=== PATIENT | male | born 1960 | race Caucasian/White ===

== ENCOUNTER 2016-10-30 14:02 | Inpatient (IN) | payer MEDICARE ==
[~2016-10-30] VITALS: Ht 167.6 cm; Wt 106.6 kg
--- NOTE | ~2016-10-30 | HEMODYNAMI ---
PATIENT:SYED MONK MEDICAL RECORD: [id number] : 64 [id number] ADMISSION DATE: 10/30/16 Generatedon:10/31/20169:01 Patient name: SYED MONK Patient #: [id number] SSN: : 1960 Date of study: 10/31/2016 Page: Of Hemodynamic Procedure Report Patient Data Patient Demographics Procedure consent was obtained First Name: SYED Gender: Male Last Name: LACHO : 1960 [facility] Initial: COREY Age: 56 year(s) Patient #: [id number] Race: Unknown Additional ID: [id number] Contact details [address]: [address] [place] [address] ROAD State: [place] City: [place] Zip code: [address] Past Medical History Allergies: No known allergies Admission Admission Data Admission Date: 10/30/2016 Admission Time: 17:00 Room #: D.2115 Lab Results Lab Result Date: 10/31/2016 Lab Result Time: 0:00 Biochemistry Name Units Result Min Max BUN mg/dl 31 --(----)-* 7 18 Creatinine mg/dl 2.4 --(----)-* 0.6 1.3 CBC Name Units Result Min Max Hemoglobin g/dl 13.3 -*(----)-- 13.5 17.5 Procedure Procedure Types Cath Procedure Diagnostic Procedure C Coronaries only Miscellaneous Procedures Moderate Sedation up to 45 minutes Procedure Description Procedure Date Procedure Date: 10/31/2016 Procedure Start Time: 8:27 Procedure End Time: 8:54 Procedure Staff Name Function Joon Fields RT Scrub Juan Manuel Lugo MD Performing Physician Jeremy Sinclair RT Monitor Rhona Swanson RN Nurse Procedure Data Cath Procedure Fluoroscopy Diagnostic fluoroscopy Total fluoroscopy Time: time: 10.3 min 10.3 min Diagnostic fluoroscopy Total fluoroscopy dose: dose: 1220 mGy 1220 mGy Contrast Material Contrast Material Type Amount (ml) Isovue 300 86 Entry Location Entry Primary Successful Side Size Upsize Upsize Entry Closure Succes sful Closure Location (Fr) 1 (Fr) 2 (Fr) Remarks Device Remarks Femoral Right 6 Fr Exoseal artery Short Estimated blood loss: 10 ml Procedure Complications No complications Procedure Medications Medication Administration Route Dosage Lidocaine 2% added to field 20 Heparin Flush Bag added to field 2 bags (1000units/500ml NS) Oxygen NC 3 l/min 0.9% NaCl I.V. 100 ml/hr Versed I.V. 1 mg Fentanyl I.V. 50 mcg Heparin Bolus I.V. 4000 units Versed I.V. 1 mg Fentanyl I.V. 50 mcg Versed I.V. 1 mg Hemodynamics Rest HGB: 13.3 (g/dl) Heart Rate: 70 (bpm) Snapshots Pre Cath Intra NCS Post Cath Vital Signs Time Heart Resp SPO2 etCO2 MP4bkwo NIBP (mmHg) Rhythm Pain Sedation Rate (ipm) (%) (mmHg) (mmHg) Status Level (bpm) 8:01:45 57 16 96 0 0 149/89(132) NSR 0 (11) 10(A) , No pain 8:06:05 67 17 100 0 0 119/85(97) NSR 0 (11) 10(A) , No pain 8:11:10 79 16 97 0 0 123/83(101) NSR 0 (11) 10(A) , No pain 8:15:20 81 16 95 0 0 131/79(108) NSR 0 (11) 10(A) , No pain 8:19:28 75 17 98 0 0 123/81(96) NSR 0 (11) 10(A) , No pain 8:23:42 76 15 93 0 0 128/77(95) NSR 0 (11) 10(A) , No pain 8:27:58 62 16 96 0 0 130/76(87) NSR 0 (11) 10(A) , No pain 8:32:14 75 17 99 0 0 124/76(98) NSR 0 (11) 9(A) , No pain 8:36:22 85 17 93 0 0 121/77(92) NSR 0 (11) 9(A) , No pain 8:40:23 77 27 91 0 0 115/81(109) NSR 0 (11) 9(A) , No pain 8:44:31 84 23 91 0 0 127/83(97) NSR 0 (11) 9(A) , No pain 8:48:43 80 15 91 0 0 120/77(93) NSR 0 (11) 9(A) , No pain 8:52:57 77 16 99 0 0 116/76(92) NSR 0 (11) 10(A) , No pain Medications Time Medication Route Dose Verified Delivered Reason Notes Eff ectiveness by by 7:46:11 Lidocaine 2% added 20ml Rhona Rhona used for to vial Kiki Kiki procedure field RN RN 7:46:23 Heparin Flush added 2 Rhona Rhona used for Bag to bags Kiki Kiki procedure (1000units/500ml field RN RN NS) 8:00:33 Oxygen NC 3 Rhona Rhona used for l/min Kiki Kiki axle inspector RN 8:00:44 0.9% NaCl I.V. 100 Rhona Rhona used for ml/hr Kiki Kiki axle inspector RN 8:03:17 Fentanyl I.V. 50 Rhona Rhona for mcg Kiki Kiki sedation RN RN 8:26:20 Versed I.V. 1 mg Rhona Rhona for Kiki Kiki sedation RN RN 8:27:25 Fentanyl I.V. 50 Rhona Rhona for mcg Kiki Kiki sedation RN RN 8:30:41 Heparin Bolus I.V. 4000 Juan Manuel Rhona Per verified units [facility] physician with dr. JASMYNE lugo 8:31:04 Versed I.V. 1 mg Rhona Rhona for Kiki Kiki sedation RN RN 8:35:25 Versed I.V. 1 mg Rhona Rhona for Kiki Kiki sedation RN embedded processor Log Time Note 7:43:10 H&P Date Dictated: 10/30/2016 Within 30 days and on chart.. 7:43:17 Lab results completed and on chart. 7:43:56 Lab Result : Hemoglobin 13.3 g/dl 7:43:56 Lab Result : Creatinine 2.4 mg/dl 7:43:56 Lab Result : BUN 31 mg/dl 7:45:53 Joon Fields RT(R) (CV) sent for patient. Start room use. 7:45:55 Time tracking: Regular hours 7:45:59 Plan of Care:Hemodynamics will remain stable., Cardiac rhythm will remain stable., Comfort level will be maintained., Respiratory function will remain adequate., Patient/ family verbilizes understanding of procedure., Procedure tolerated without complication., Recovers from procedure without complications.. 7:46:11 Lidocaine 2% 20ml vial added to field was administered by Rhona Swanson RN; used for procedure; 7:46:23 Heparin Flush Bag (1000units/500ml NS) 2 bags added to field was administered by Rhona Swanson RN; used for procedure; 7:46:48 Use device set Femoral PCI 7:54:39 Patient received from PCU to CCL 1 Alert and oriented. Tansferred to table in Supine position. 7:54:41 Warm blankets applied, and jillian hugger turned on for patient comfort. 7:54:42 Correct patient and procedure confirmed by team. 7:54:43 Signed procedure consent form obtained from patient. 7:54:44 ECG and BP/O2 sat monitors applied to patient. 7:58:52 Pre-op teaching completed and patient verbalized understanding. 7:58:52 Pre-procedure instructions explained to patient. 7:58:54 Family in waiting room. 7:58:56 Patient NPO since Midnight. 7:59:07 Patient allergic to No known allergies 7:59:09 Is the patient allergic to Iodine/contrast media? No. 8:00:33 Oxygen 3 l/min NC was administered by Rhona Swanson RN; used for procedure; 8:00:44 0.9% NaCl 100 ml/hr I.V. was administered by Rhona Swanson RN; used for procedure; 8:00:45 Vital chart was started 8:02:35 Is patient on blood thinner?No 8:02:40 Patient diabetic? No. 8:02:45 Previous problem with sedation/anesthesia? No ? 8:02:46 Snore? Yes 8:02:47 Sleep apnea? No 8:02:49 Opens mouth fully? Yes 8:02:49 Deviated septum? No 8:02:50 Sticks out tongue? Yes 8:02:53 Airway obstruction? No ? 8:03:00 Dentures? Yes out 8:03:03 Pre procedure: right dorsailis pedis pulse 1+ Palpable, but thready & weak; easily obliterated 8:03:05 Patient pain scale 0/10 ?. 8:03:12 IV patent on arrival in left hand with 0.9% NaCl at [facility]. 8:03:17 Fentanyl 50 mcg I.V. was administered by Rhona Swanson RN; for sedation; 8::17 Right groin area was prepped with chlora-prep and draped in sterile fashion 8:03:19 Sharps counted by scrub and verified by R.N. 8:03:19 Alarms reviewed by R. N. 8:04:18 Use device set Femoral PCI 8:04:20 Tegaderm 4 x 4 opened to sterile field. 8:04:22 Acist Manifold opened to sterile field. 8:04:24 Merit BasixCompak Inflation Kit opened to sterile field. 8:04:25 St Awais 260cm J .035 wire opened to sterile field. 8:04:25 Terumo 6Fr [place] Sheath opened to sterile field. 8:04:27 Bag Decanter opened to sterile field. 8:04:27 Medline Cath Pack opened to sterile field. 8:04:28 Acist Hand Control opened to sterile field. 8:04:29 Acist Syringe opened to sterile field. 8:05:25 Baseline sample Acquired. 8:05:36 Rhythm: sinus rhythm 8:05:38 Full Disclosure recording started 8:11:43 Cordis 6FR XBLAD 4.0 guide catheter opened to sterile field. 8:12:15 Zero performed for pressure channel P1 8:12:36 Villalba Fielder XT J 300cm 0.014 guide wire opened to sterile field. 8:25:09 --------ALL STOP TIME OUT------ 8:25:09 Physician arrived 8:25:10 Final Timeout: patient, procedure, and site verified with staff and physician. All members of the team are in agreement. 8:25:11 Right groin site verified by team. 8:25:14 Physical assessment completed. ASA score P 2 - A patient with mild systemic disease as per Juan Manuel Lugo MD. 8:25:17 Sedation plan: IV Moderate Sedation Versed, Fentanyl 8:26:20 Versed 1 mg I.V. was administered by Rhona Kiki RN; for sedation; 8:27:25 Fentanyl 50 mcg I.V. was administered by Rhona Swanson RN; for sedation; 8:27:45 Procedure started. 8:27:48 Local anesthetic to right femoral artery with Lidocaine 2% by Juan Manuel Lugo MD.INITIAL ACCESS ONLY 8:28:23 A 6 Fr Short sheath was inserted into the Right Femoral artery 8:28:32 [place] Sci Choice PT Extra Support J 300cm .014 gu opened to sterile field. 8:29:25 6 Fr XBLAD 4 guide catheter was inserted over the wire 8:29:33 LCA angiography performed. 8:30:41 Heparin Bolus 4000 units I.V. was administered by Rhona Swanson RN; Per physician; verified with dr. lugo 8:31:02 CHOICE PT ES wire advanced. 8:31:04 Versed 1 mg I.V. was administered by Rhona Swanson RN; for sedation; 8:34:30 SuperCross Microcatheter 90 angle opened to sterile field. 8:35:25 Versed 1 mg I.V. was administered by Rhona Swanson RN; for sedation; 8:36:22 SuperCross Microcatheter advanced over wire for support. 8:40:24 choice PT wire removed 8:40:35 Fielder wire advanced. 8:44:47 Wire removed. unable to cross lesion. 8:44:58 Microcatheter removed. 8:45:15 Cordis Shinobi J 300cm 0.014 guide wire opened to sterile field. 8:45:31 Shinobi wire advanced. 8:45:32 The [place] Sci Republic 1.5 X 20 balloon was advanced and then removed because of failure to cross lesion 8:49:10 Timer 1 started at 8:47 AM, stopped at 8:49 AM, duration 00:01:52 sec. 8:49:17 Wire removed. 8:49:18 Guide catheter removed. 8:49:29 Cordis 6Fr Exoseal opened to sterile field. 8:49:51 Sheath removed intact; hemostasis achieved with Exoseal to the Right Femoral artery. 8:49:53 Procedure ended.(Physican Out) 8:50:31 Fluoroscopy time 10.30 minutes. 8:50:35 Flurop Dose total: 1220 8:50:35 Fluoroscopy dose: 1220 mGy 8:50:39 Contrast amount:Isovue 300 86ml. 8:50:42 Sharps counted by scrub and verified by R.N. 8:50:44 Insertion/operative site no bleeding no hematoma. 8:50:46 Post-op/insertion site Right Femoral artery dressed using a 4 x 4 and Tegaderm. 8:50:54 Post right femoral artery:stable, soft, clean and dry 8:52:23 Post Procedure Pulses reassessed and unchanged 8:52:25 Post-procedure physical assessment completed. ASA score P 2 - A patient with mild systemic disease as per Juan Manuel Lugo MD. 8:52:27 Post procedure rhythm: unchanged. 8:52:29 Estimated blood loss: 10 ml 8:52:31 Post procedure instruction explained to patient.Patient verbalizes understanding. 8:52:31 Patient needs reinforcement of post procedure teaching. 8:52:52 Procedure type changed to Cath procedure, Diagnostic procedure, LHC, Coronaries only, Miscellaneous Procedures, Moderate Sedation up to 45 minutes 8:54:27 Procedure and supply charges have been captured, reviewed, submitted and are correct. 8:54:30 Procedure Complication : No complications 8:54:34 Vital chart was stopped 8:54:34 See physician's report for complete and final results. 8:54:36 Report given to PCU. 8:54:41 Patient transfered to PCU with Stretcher. 8:54:44 Procedure ended. 8:54:44 Full Disclosure recording stopped 8:55:00 End room use (Document Last) Intervention Summary Intervention Notes Time ActionType Lesion and Equipment Action# Pressure Duration Attributes Used 8:45:32 Discard [place] Balloon Sci Republic 1.5 X 20 balloon Device Usage Item Name Manufacture Quantity Catalog Number [facility] Lot# / Charge Number Stock Stock Serial# Code Tegaderm 4 x 3M 1 [id number] 234693 365543 5 4 Acist Acist 1 01676 693891 844197 489803 5 [place] [employer] Merit Merit 1 [id number] [id number] 005136 252835 15 BasixComStrategy Store Medical Inflation Kit Terumo 6Fr Terumo 1 [id number] 516656 930277 [address] Awais 1 229094 112579 892870 314163 30 J .035 wire Medline Cath Cardinal 1 [id number] 778539 23054 213702 5 Pack Health Bag Decanter Microtek 1 2002 689546 24640 094389 5 Medical Inc. Acist Hand Acist 1 66221 080731 302612 103030 5 Control Medical Systems Inc Acist Syringe Acist 1 73031 646089 295478 211905 20 Medical Systems Inc Cordis 6FR Cardinal 1 [id number] 341992 187215 540511 3 XBLAD 4.0 Health guide catheter Villalba Villalba 1 [id number] 785736 062182 736854 5 Fielder XT J Vascular 300cm 0.014 guide wire [place] [facility] 1 [id number] 376344 557306 979755 5 Choice PT Scientific Extra Support J 300cm .014 gu SuperCross Vascular 1 5304 107453 221862 215783 5 Microcatheter Solutions 90 angle Cordis Cardinal 1 [id number] 471363 052869 912618 1 Shinobi J Health 300cm 0.014 guide wire Cordis 6Fr Cardinal 1 EX600 325802 522788 436899 10 Exoseal Health [place] [facility] 1 [id number] 963016 280928 929520 1 [id number] FClub 1.5 Scientific X 20 balloon Signature Audit [place] Stage Time Signature Unsigned Intra-Procedure 10/31/2016 Jeremy Sinclair RT(R) 8:55:17 AM RT(R) 10/31/2016 8:59:11 AM Intra-Procedure 10/31/2016 Jeremy Sinclair 9:01:30 AM RT(R) Signatures Monitor : Jeremy Sinclair RT Signature : Date : Time : [facility] [address] [place] [address]
[2016-10-30 15:22] LABS: BASOPHILS 0.2 % (0-2); EOSINOPHILS 1.5 % (0-7); HEMATOCRIT 41.4 % (42.0-54.0); HEMOGLOBIN 13.8 g/dL (13.5-17.5); IMMATURE GRANULOCYTES 0.3 % (0-5); LYMPHOCYTES 23.5 % (15-50); MCH 30.7 pg (26.0-34.0); MCHC 33.3 g/dL (31.0-37.0); MEAN PLATELET VOLUME 11.4 fL (7.4-10.4); MONOCYTES 8.4 % (2-11); NEUTROPHILS 66.1 % (40-80); PLATELET COUNT 143 10x3/uL (130-400); RDW 13.6 % (11.5-14.5); WBC 6.1 10x3/uL (4.8-10.8)
[2016-10-30 15:54] LABS: ANION GAP 14.7 mmol/L (8-16); BILIRUBIN - TOTAL 0.5 mg/dL (0.2-1.3); CALCIUM 9.4 mg/dL (8.5-10.1); CARBON DIOXIDE 21.2 mmol/L (21.0-32.0); CREATININE - SERUM 2.2 mg/dL (0.6-1.3); POTASSIUM - SERUM 4.9 mmol/L (3.5-5.1); PROTEIN - SERUM 7.7 g/dL (6.4-8.2)
--- NOTE | 2016-10-30 18:00 | NUR ---
TRANSFER FROM ER BY STRETCHER. OREINTED TO ROOM. CALL LIGHT IN REACH. WILL CONT. PLAN OF CARE.
[2016-10-30 18:15] VITALS: BP 132/78; BMI 38.0
[2016-10-30] MEDS ORDERED: ISOSORBIDE MONO30 M1 PO (18:23)
[2016-10-30] MEDS ORDERED: PROTONIX40 MG PO (18:24)
[2016-10-30] MEDS ORDERED: ZOCOR10 MG PO (18:25)
[2016-10-30] MEDS ORDERED: INVOKANA100 MG PO (18:25)
[2016-10-30] MEDS ORDERED: GABAPENTIN100 MG PO ×2 (18:26)
[2016-10-30] MEDS ORDERED: TRAZODONE HCL50 MG PO (18:27)
[2016-10-30] MEDS ORDERED: GLUCOPHAGE500 MG PO (18:27)
[2016-10-30] MEDS ORDERED: ASPIRIN325 MG PO (18:27)
[2016-10-30] MEDS ORDERED: GEMFIBROZIL600 MG PO (18:27)
[2016-10-30] MEDS ORDERED: LISINOPRIL10 MG PO (18:28)
[2016-10-30] MEDS ORDERED: LINZESS145 MCG PO (18:28)
[2016-10-30] MEDS ORDERED: NOVOLIN N100 U/ML SQ ×2 (18:29)
[2016-10-30 19:00] VITALS: BP 138/85
--- NOTE | 2016-10-30 21:37 | NUR ---
CALL TO DR. BLANCO TO REPORT PT HAVING HEAD ACHE/CHEST DISCOMFORT. NO PAIN MEDS ORDERED PER ER. NEW ORDER RECIEVED.
[2016-10-31] VITALS: BP 122/71
--- NOTE | 2016-10-31 02:35 | NUR ---
PT AWAKE AND C/O HEADACHE 12/10. STATES THE MORPHINE HE RECEIVED EARLIER MADE IT GO AWAY AND IS REQUESTING MORE MEDICATION. MEDICATED WITH MORPHINE 2MG SIVP. MONITOR AND CPOC.
[2016-10-31 04:00] VITALS: BP 116/71
[2016-10-31 04:58] LABS: BASOPHILS 0.3 % (0-2); EOSINOPHILS 2.1 % (0-7); HEMATOCRIT 41.4 % (42.0-54.0); HEMOGLOBIN 13.3 g/dL (13.5-17.5); IMMATURE GRANULOCYTES 0.7 % (0-5); MCH 29.9 pg (26.0-34.0); MCHC 32.1 g/dL (31.0-37.0); MEAN PLATELET VOLUME 11.1 fL (7.4-10.4); MONOCYTES 8.5 % (2-11); NEUTROPHILS 60.4 % (40-80); PLATELET COUNT 145 10x3/uL (130-400); RBC 4.45 10x6/uL (4.20-6.10); RDW 13.6 % (11.5-14.5); WBC 5.7 10x3/uL (4.8-10.8)
[2016-10-31 05:19] LABS: CALC OSMOLALITY 280 mosm/kg (275-300); CALCIUM 8.8 mg/dL (8.5-10.1); CARBON DIOXIDE 24.8 mmol/L (21.0-32.0); CHLORIDE - SERUM 102 mmol/L (98-107); CREATININE - SERUM 2.4 mg/dL (0.6-1.3); GLUCOSE 133 mg/dL (74-106); POTASSIUM - SERUM 4.9 mmol/L (3.5-5.1); SODIUM 136 mmol/L (136-145); UREA NITROGEN 31 mg/dL (7-18); eGFR NON AFRICAN AMERICAN 30 mL/min (90-120)
[2016-10-31 05:21] LABS: TROPONIN-I < 0.017 ng/mL (0.000-0.060)
[2016-10-31 09:12] VITALS: BP 125/81
[2016-10-31 10:41] VITALS: Ht 167.6 cm; Wt 106.6 kg
[2016-10-31 12:55] LABS: APPEARANCE CLEAR (CLEAR); BILIRUBIN NEGATIVE (NEGATIVE); COLOR YELLOW (YELLOW); GLUCOSE 1000 mg/dL (NEGATIVE); KETONE NEGATIVE (NEGATIVE); LEUKOCYTE ESTERASE NEGATIVE (NEGATIVE); NITRITE NEGATIVE (NEGATIVE); PROTEIN NEGATIVE (NEGATIVE); RED CELLS - URINE 25-50 /hpf (0-5); SPECIFIC GRAVITY 1.015 (1.005-1.020); UROBILINOGEN NORMAL (NORMAL); WHITE CELLS - URINE RARE /hpf (0-5)
[2016-10-31 12:56] LABS: BACTERIA FEW /hpf (NONE SEEN); EPITHELIAL CELLS OCC /hpf (0-5); MUCUS <1+ /lpf (NONE SEEN)
[2016-10-31 16:13] VITALS: BP 129/72
--- NOTE | 2016-10-31 17:35 | NUR ---
REVIWED DISCHARGE INSTRUCTIONS WITH PT PT STATES UNDERSTANDING COPY GIVEN DCD SALINE LOCK TO LT WRIST WITH IV CATHETER INTACT SITE FREE OF REDNESS OR EDEMA PT DISCHARGED HOME LEFT UNIT VIA W/C IN STABLE CONDITION WITH ALL PERSONAL BELONGINGS
--- NOTE | 2016-11-01 13:52 | DS ---
PATIENT:SYED VERDUZCO :64 MEDICAL RECORD: [id number] DISCHARGE SUMMARY ADMISSION DATE: 10/31/16 DISCHARGE DATE: 10/31/16 DIAGNOSES: 1. Angina. 2. Coronary artery disease. HISTORY: Mr. Verduzco presents with anginal symptomatology, found to have total occlusion of the RCA, total occlusion in the LAD. We cannot traverse the total occlusion in the LAD via transcatheter approach. He was seen by cardiac surgery, scheduled for cardiac surgery on the , was discharged home with the follow up on the for cardiac surgery. TRANSINT:[id number] Voice Confirmation ID: [id number] DOCUMENT ID: [id number] JOE VU MD at 1352 CC: [id number] DICTATION DATE: 10/31/16 1636 FORENSIC MANAGER: 11/01/16 0343 DIS IN 10/31/16 [facility] [address] [place] [address]
--- NOTE | 2016-11-01 13:52 | HP ---
PATIENT: SYED MONK MEDICAL RECORD: [id number] ACCOUNT: [id number] LOCATION:D. D.2115 : 64 ADMISSION DATE: 10/31/16 HISTORY AND PHYSICAL EXAMINATION ADMITTING DIAGNOSES: 1. Angina. 2. Coronary artery disease. 3. Hypertension. 4. Insulin-dependent diabetes. 5. Hyperlipidemia. HISTORY OF PRESENT ILLNESS: This is a gentleman who presents with anginal symptomatology. He underwent cardiac catheterization at [facility] was told he need a bypass surgery, I reviewed the cardiac catheterization film. He has a 20 mm total occlusion of his left anterior descending in the mid vessel. He has a subtotal occlusion of the right coronary artery in the mid as well as distal vessel. The right coronary has a channel appears to be easily approached via transcatheter approach. The LAD has a nub and is possibly be able to approach via transcatheter approach. He wants to try to avoid having bypass surgery if at all possible. His EKG is with no acute changes. PHYSICAL EXAMINATION: GENERAL APPEARANCE: Well-nourished, well-developed, appears stated age. Level of distress, comfortable. PSYCHIATRIC: Mental status, alert, normal affect. Orientation, oriented to time, place and person. EYES: Lids and conjunctiva, noninjected. No discharge, no pallor. ENT: Lips, teeth, gums, normal dentition. Oropharynx, no cyanosis, no pallor. NECK: Carotid arteries, bilateral normal upstroke, no bruits, no thrills. JUGULAR VEINS: No jugular venous pressure or distention. CERVICAL LYMPH NODES: Nontender, nonenlarged. THYROID: Not enlarged. Nontender. No nodules. LUNGS: Respiratory effort, unlabored. CHEST: Normal curvature. No thoracic deformity. No chest wall tenderness. Percussion, resonant. Auscultation, clear. No wheezes, no rales, no rhonchi. CARDIOVASCULAR: Precordial exam, nondisplaced. No heaves or pericardial thrills. Rate and rhythm, regular. Heart sounds, normal S1, normal S2. No S3, no gallop, no rub. Systolic murmur, not heard. Diastolic murmur, not heard. EXTREMITIES: No cyanosis, no edema. Peripheral pulses, full and equal in all extremities, except as noted. No bruits appreciated. ABDOMEN: Soft, nondistended. Normal aorta. No bruit. Nontender. No masses. Liver, nontender, no hepatomegaly. Spleen, nontender, no splenomegaly. MUSCULOSKELETAL: No joint tenderness. No joint swelling. No erythema. NEUROLOGICAL: Normal gait, normal strength, normal tone. SKIN: Warm and dry. REVIEW OF SYSTEMS: The patient reports easy bruising but reports no swollen glands. The patient reports no fever, no night sweats, no significant weight gain, no significant weight loss. No significant exercise tolerance. The patient reports no dry eyes, no irritation, no vision change. Patient reports no difficulty hearing and no ear pain. Patient reports no frequent nose bleeds or nose and sinus problems. Patient reports on arm pain on exertion. No shortness of breath while lying down. No history of heart murmur. Patient reports no cough, no wheezing or coughing up blood. Patient reports no HISTORY AND PHYSICAL [id number] SYED MONK abdominal pain, no vomiting. Normal appetite. No diarrhea and not vomiting blood. No nausea and no constipation. Patient reports no incontinence. No difficulty urinating. No hematuria. No increased frequency. Patient reports no muscle aches. No weakness, no arthralgias, no back pain. No swelling of the extremities. Patient reports no abnormal mole, no jaundice, no rashes. Reports no loss of consciousness. No weakness and no numbness. No seizures, dizziness, or headaches. The patient reports no depression, no sleep disturbance, feeling safe in a relationship and no alcohol abuse. Patient reports on fatigue. Reports no runny nose or sinus pressure. No itching, no hives, and no frequent sneezing. OVERALL IMPRESSION: Continued anginal symptomatology with severe coronary artery disease. We will attempt transcatheter revascularization of the LAD if this can be performed, we will then do a staged transcatheter revascularization of the right coronary artery. If this cannot be performed, would consult Dr. Pride for bypass surgery. TRANSINT:[id number] Voice Confirmation ID: [id number] DOCUMENT ID: [id number] JOE VU MD at 1352 CC: [id number] DICTATION DATE: 10/30/16 1537 CORE OVEN TENDER: 10/30/16 1722 DIS IN 10/31/16 [place] [id number] [place] [address]
--- NOTE | 2016-11-01 13:52 | OP ---
PATIENT NAME: SYED MONK MEDICAL RECORD: [id number] :64 LOCATION:D.M2 D.2115 ADMISSION DATE:10/31/16 SURGEON: JOE VU MD DATE OF OPERATION: 10/31/2016 PROCEDURES: 1. Selective coronary angiography. 2. Attempted but failed PTCA stent of the LAD due to inability to cross the lesion. PROCEDURE IN DETAIL: After informed consent obtained and after a detailed explanation of risks, benefits as well as alternative therapies, the patient elected to proceed with angiogram and angioplasty. The right femoral area was prepped and draped in normal sterile fashion. The right femoral artery was cannulated via modified Seldinger technique with placement of 6-Syriac sheath. All catheters exchanged through this sheath. FINDINGS: The left anterior descending has 20 mm of total occlusion in the mid vessel. We attempted multiple wires, no wire would cross this total occlusion. OVERALL IMPRESSION: Total occlusion of the LAD, total occlusion of the RCA. Evaluate for coronary bypass graft surgery. TRANSINT:[id number] Voice Confirmation ID: [id number] DOCUMENT ID: [id number] JOE VU MD at 1352 CC: [id number] DICTATION DATE: 10/31/16 0855 TOBACCO CUTTER: 10/31/16 1230 DIS IN 10/31/16 [place] [place] [address]
[2016-11-01] MEDS ORDERED: HUMULIN N100 U/ML SC (14:41)
== END 2016-10-31 17:35 | disposition home or self-care (01) | DRG 251 ==
LOC: D.ER 14:02 → OBSVTIME 17:00 → D.M2 17:00
PROVIDERS: Emergency Medicine; ADMIT Internal Medicine Interventional Cardiology
PROC: 4A023N7 Measurement of Cardiac Sampling and Pressure, Left Heart, Percutaneous Approach (ICD-10-PCS; 2016-10-31)
PROC: B2111ZZ Fluoroscopy of Multiple Coronary Arteries using Low Osmolar Contrast (ICD-10-PCS; 2016-10-31)
PROC: B2151ZZ Fluoroscopy of Left Heart using Low Osmolar Contrast (ICD-10-PCS; 2016-10-31)
PROC: 02703ZZ Dilation of Coronary Artery, One Artery, Percutaneous Approach (ICD-10-PCS; principal; 2016-10-31 10:30)
DX: I25.119 Atherosclerotic heart disease of native coronary artery with unspecified angina pectoris (principal); I25.82 Chronic total occlusion of coronary artery; I10 Essential (primary) hypertension; E11.9 Type 2 diabetes mellitus without complications; Z79.4 Long term (current) use of insulin; E78.5 Hyperlipidemia, unspecified

== ENCOUNTER 2016-11-05 05:04 | Inpatient (IN) | payer MEDICARE ==
[2016-11-01 15:54] LABS: BASOPHILS 0.2 % (0-2); EOSINOPHILS 1.9 % (0-7); HEMATOCRIT 41.3 % (42.0-54.0); HEMOGLOBIN 13.7 g/dL (13.5-17.5); IMMATURE GRANULOCYTES 0.6 % (0-5); LYMPHOCYTES 31.3 % (15-50); MCH 30.5 pg (26.0-34.0); MCHC 33.2 g/dL (31.0-37.0); MEAN PLATELET VOLUME 10.8 fL (7.4-10.4); MONOCYTES 7.6 % (2-11); NEUTROPHILS 58.4 % (40-80); PLATELET COUNT 157 10x3/uL (130-400); RBC 4.49 10x6/uL (4.20-6.10); RDW 13.5 % (11.5-14.5); WBC 5.4 10x3/uL (4.8-10.8)
[2016-11-01 15:58] LABS: APTT 27.9 SECONDS (22.8-39.4); INR 1.02 (0.85-1.17); PROTIME 13.2 SECONDS (11.6-15.0)
[2016-11-01 16:25] LABS: APPEARANCE CLEAR (CLEAR); BILIRUBIN NEGATIVE (NEGATIVE); COLOR YELLOW (YELLOW); GLUCOSE 1000 mg/dL (NEGATIVE); KETONE NEGATIVE (NEGATIVE); LEUKOCYTE ESTERASE NEGATIVE (NEGATIVE); NITRITE NEGATIVE (NEGATIVE); PROTEIN NEGATIVE (NEGATIVE); UROBILINOGEN NORMAL (NORMAL)
[2016-11-01 16:26] LABS: RED CELLS - URINE 0-5 /hpf (0-5); WHITE CELLS - URINE OCC /hpf (0-5)
[2016-11-01 17:12] LABS: ALBUMIN 4.1 g/dL (3.4-5.0); ANION GAP 14.8 mmol/L (8-16); BILIRUBIN - TOTAL 0.53 mg/dL (0.2-1.3); CALCIUM 9.1 mg/dL (8.5-10.1); CARBON DIOXIDE 25.6 mmol/L (21.0-32.0); CREATININE - SERUM 2.3 mg/dL (0.6-1.3); PHOSPHOROUS 3.9 mg/dL (2.5-4.9); POTASSIUM - SERUM 4.4 mmol/L (3.5-5.1); PROTEIN - SERUM 7.7 g/dL (6.4-8.2); T4 THYROXIN - FREE 0.95 ng/dL (0.76-1.46); THYROID STIMULATING HORMONE 1.83 uIU/mL (0.36-3.74); URIC ACID 9.1 mg/dL (2.6-7.2)
[2016-11-01 19:42] LABS: COLD SCREEN @ 4 DEGREES NEGATIVE (NEGATIVE); COLD SCREEN ROOM TEMP NEGATIVE (NEGATIVE)
[2016-11-02 06:13] LABS: HEPATITIS C ANTIBODY <0.1 (0.0-0.9)
--- NOTE | 2016-11-02 12:51 | HP ---
PATIENT: SYED MONK MEDICAL RECORD: [id number] ACCOUNT: [id number] LOCATION:[facility] : 64 ADMISSION DATE: 11/05/16 HISTORY AND PHYSICAL EXAMINATION Objective Data History of Present Illness: Severe occlusive coronary artery disease Patient underwent attempted crossing of chronic total occlusion of the left anterior descending. He has total occlusion of his left anterior descending right coronary artery. He has shortness of breath with minimal exercise and chest heaviness. Neurological Hx: NONE, ` EENT Hx: NONE, ` Endocrine Hx: NONE Cardiovascular Hx: HTN, CORONARY ARTERY DISEASE Respiratory Hx: NONE Cancer Hx: NONE Immune Disorders: NONE Gastrointestinal Hx: CONSTIPATION Psychosocial Hx: DEPRESSION, ANXIETY Surgery Hx: GALLBLADDER Allergies Coded Allergies: No Known Allergies (10/30/16) Medications Reported Medications ISOSORBIDE MONONITRATE (ISOSORBIDE MONONITRATE ER) 30 MG PO DAILY Pantoprazole (Protonix) 40 MG PO DAILY Simvastatin (Zocor) 10 MG PO QHS CANAGLIFLOZIN (INVOKANA) 100 MG PO [id number] Gabapentin (Neurontin) 200 MG PO QAM Gabapentin (Neurontin) 200 MG PO QHS metFORMIN (Glucophage) 500 MG PO BID MEALS Gemfibrozil 600 MG PO BID Aspirin 325 MG PO DAILY Trazodone HCl (Desyrel) 50 MG PO QHS Lisinopril 10 MG PO DAILY LINACLOTIDE (LINZESS) 145 MCG PO DAILY@0600 NPH, Human Insulin Isophane (Novolin N) 10 UNITS SQ QAM NPH, Human Insulin Isophane (Novolin N) 20 UNITS SQ QHS Family Hx Parent: CARDIOVASCULAR DISEASE, DIABETES, CANCER Sibling: CANCER Natural Child: NONE KNOWN Social History Smoking Status: NEVER TOBACCO USER Alcohol: No Recreational Drug Use: No HISTORY AND PHYSICAL [id number] SYED MONK SUBJECTIVE Chief Complaint: chest pain, shortness of breath Review of Systems GEN fatigue, weakness TRACK LAYER HEAD headache, neg dizziness, neg numbness, neg mental status change CV chest pain, neg orthopnea, neg LE edema ID neg fever, neg chills, neg sweats, neg sore throat GI neg nausea, neg emesis, neg abdominal pain, neg diarrhea, neg constipation neg acute kidney disease, neg chronic kidney dx, neg dialysis, neg dysuria, neg jacobo HEME neg epistaxis, neg hemoptysis, neg hematuria, neg GI bleeding ENDO neg thirsty, neg sweaty, neg tremor Skin Warm, Dry Pulm SOB, neg cough, neg sputums, neg pleurisy Musc/skel neg pain, neg misalignment, neg stiffness, neg joint swelling, neg decreased ROM, neg functional deficit, neg arthritis Physical Exam General Appearance: alert, awake, conversant, face symetrical, mental status normal, oriented, no acute distress HEENT: anicteric, mucus membranes moist Neck: no JVD Cardiovascular Assessment: normal cap refill, regular rate and rhythm, no ectopy Peripheral Pulses: Rt Post. tibial present, Lt Post. tibial present, Rt Dorsalis Pedis present, Lt Dorsalis Pedis present Resp Assessment: no acute distress, normal breath sounds, no wheezes, no rhonchi, no rales, no crackles Abdomen/GI Assessment: soft, nontender, no distention, no guarding, no hepatosplenomegaly, no masses Neur/TRACK LAYER HEAD: alert, oriented times 4, speech clear, no gross deficits, sensation grossly intact Extremity Assessment: normal inspection, neurovascular intact Skin: Warm, Dry NUTRITION: Diet Problem List 1. Atherosclerosis of coronary artery with angina pectoris (Acute) 2. Chronic total occlusion of coronary artery (Chronic) Plan After examining the patient. His history physical and cardiac catheterization think that he would benefit from coronary artery bypass. He has total occlusion of his left anterior descending and right coronary artery. His ventricular function is moderately depressed with an ejection fraction of 35%. I have discussed his disease process with him and his father in detail as well as the alternative methods of treatment. We discussed coronary artery bypass including the expected benefits and risks which include bleeding, infection, stroke, loss of limb, and , and the imponderables. He understands all of the above and wishes to proceed with planned surgery next week. Plan carotid Doppler studies. HISTORY AND PHYSICAL [id number] SYED MONK EDWARD MD at 1251 CC: [id number] DICTATION DATE: 10/31/16 180 CONFECTIONERY DROPS MACHINE OPERATOR: JAIME 11/01/16 1002 PRE IN [facility] [address] [place] [address]
[~2016-11-05] VITALS: Ht 167.6 cm; Wt 100.0 kg
[2016-11-05] VITALS (39 sets, daily range): BP systolic 90–145; BP diastolic 51–93; BMI 38.1; BMI 37.3
[~2016-11-05 05:04] MED LIST: ASPIRIN325 MG PO; GABAPENTIN100 MG PO; GEMFIBROZIL600 MG PO; GLUCOPHAGE500 MG PO; HUMULIN N100 U/ML SC; INVOKANA100 MG PO; ISOSORBIDE MONO30 M1 PO; LINZESS145 MCG PO; LISINOPRIL10 MG PO; NOVOLIN N100 U/ML SQ; PROTONIX40 MG PO; TRAZODONE HCL50 MG PO; ZOCOR10 MG PO
[2016-11-05 08:51] LABS: PLT FUNCT.(P2Y12) PLAVIX 245 PRU (194-418)
[2016-11-05 14:21] LABS: HEMATOCRIT 32.7 % (42.0-54.0); HEMOGLOBIN 11.1 g/dL (13.5-17.5); MCH 30.2 pg (26.0-34.0); MCHC 33.9 g/dL (31.0-37.0); MCV 89.1 fL (80.0-100.0); MEAN PLATELET VOLUME 10.9 fL (7.4-10.4); RBC 3.67 10x6/uL (4.20-6.10); RDW 13.1 % (11.5-14.5); WBC 12.8 10x3/uL (4.8-10.8)
[2016-11-05 14:33] LABS: ANION GAP 18.5 mmol/L (8-16); CALCIUM 7.4 mg/dL (8.5-10.1); CARBON DIOXIDE 21.9 mmol/L (21.0-32.0); CREATININE - SERUM 1.8 mg/dL (0.6-1.3); POTASSIUM - SERUM 4.4 mmol/L (3.5-5.1)
[2016-11-05 14:35] LABS: APTT 33.8 SECONDS (22.8-39.4); INR 1.35 (0.85-1.17); PROTIME 16.6 SECONDS (11.6-15.0)
--- NOTE | 2016-11-05 14:45 | NUR ---
PT ARRIVED TO ROOM FROM O.R. VIA BED.
--- NOTE | 2016-11-05 16:37 | NUR ---
XRAY TAKEN. BLOOD GASSES HAVE BEEN DRAWN. FAMILY HAS BEEN IN TO SEE PATIENT. UPDATES PROVIDED TO THEM BY DR DRISCOLL. PT RESTING QUIETLY AT THIS TIME. CURRENTLY SIMV ON VENTILATOR.
--- NOTE | 2016-11-05 17:39 | NUR ---
DR JOHNSON CALLED AND CONSULT GIVEN.
--- NOTE | 2016-11-05 18:40 | NUR ---
DR DRISCOLL CALLED. UPDATE PROVIDED REGARDING BLOOD GAS RESULTS. LET HIM KNOW PT SBP HAS GONE DOWN INTO 90'S. NO CHNAGES IN TREATMENT AT THIS TIME.
--- NOTE | 2016-11-05 19:30 | NUR ---
REPORT RECIEVED. ASSESSMENT COMPLETED. SEE FLOW SHEET FOR DETAILS. PT NODS APPROPRIATELY TO COMMUNICATION WHILE INTUBATED. TALKED TO RT TO PLAN TO EXTUBATE. CHEST TUBES X3 NOTED, ON 20 CM SUCTION. ALARMS ON, WILL CONTINUE 1 ON 1 NURSING CARE.
--- NOTE | 2016-11-05 19:45 | NUR ---
TO CPAP - PT AWAKE AND COOPERATIVE.
--- NOTE | 2016-11-05 21:00 | NUR ---
NO VISITORS AT BED SIDE. PT RECIEVING ICE CHIPS, PT HANDLING THEM WELL. WILL CONTINUE 1 ON 1 NURSING CARE.
--- NOTE | 2016-11-05 23:00 | NUR ---
REASSESSMENT COMPLETED. NO ACUTE CHANGES AT THIS TIME. PT PULLED UP IN BED AND REPOSITIONED. WILL CONTINUE 1 ON 1 NURSING CARE.
[2016-11-06] VITALS (92 sets, daily range): BP systolic 94–133; BP diastolic 47–70
--- NOTE | 2016-11-06 01:00 | NUR ---
PT DENIES ANY NEEDS, IS EATING ICE CHIPS INDEPENDENTLY. POSITIONED FOR COMFORT WILL CONTINUE 1 ON 1 NURSING CARE.
--- NOTE | 2016-11-06 03:00 | NUR ---
REASSESSMENT COMPLETED. SEE FLOW SHEET FOR DETAILS. NO ACUTE CHANGES AT THIS TIME. WORKING WITH PT ON IS IMPROVING WITH EACH TIME. PT POSITIONED FOR COMFORT, WILL CONTINUE 1 ON 1 NURSING CARE.
--- NOTE | 2016-11-06 04:30 | NUR ---
DRESSING CHANGE PER ORDER. SEE FLOW SHEET FOR DETAILS. POSITIONED FOR COMFORT, WILL CONTINUE 1 ON 1 NURSING CARE.
--- NOTE | 2016-11-06 05:00 | NUR ---
PT POSITIONED FOR COMFORT. DENIES ALL NEEDS, WILL CONTINUE 1 ON 1 NURSING CARE.
[2016-11-06 06:45] LABS: ALBUMIN 4.2 g/dL (3.4-5.0); ANION GAP 17.5 mmol/L (8-16); BILIRUBIN - TOTAL 0.4 mg/dL (0.2-1.3); CALCIUM 8.3 mg/dL (8.5-10.1); CARBON DIOXIDE 25.1 mmol/L (21.0-32.0); PROTEIN - SERUM 6.7 g/dL (6.4-8.2)
[2016-11-06 06:49] LABS: HEMATOCRIT 27.5 % (42.0-54.0); HEMOGLOBIN 9.2 g/dL (13.5-17.5); MCH 30.5 pg (26.0-34.0); MCHC 33.5 g/dL (31.0-37.0); POTASSIUM - SERUM 5.6 mmol/L (3.5-5.1); RBC 3.02 10x6/uL (4.20-6.10); RDW 13.4 % (11.5-14.5); WBC 9.6 10x3/uL (4.8-10.8)
[2016-11-06 06:54] LABS: MCV 91.1 fL (80.0-100.0)
--- NOTE | 2016-11-06 06:56 | NUR ---
ORAL CARED DONE WITH PERIDEX
--- NOTE | 2016-11-06 07:38 | NUR ---
SHIFT REPORT RECEIVED. PT IS EXTUBATED. VSS. RESTING AT THIS TIME. ASSESSMENT COMPLETE. PT HAS BEEN ASKING FOR HIS FATHER. VOICE MESSAGE LEFT AT PROVIDED NUMBER.
--- NOTE | 2016-11-06 08:13 | NUR ---
DR DRISCOLL IN TO SEE PATIENT. ASKED FOR FLUIDS TO BE REDUCED TO 30ML/HR. ALERTED TO POTASSIUM LEVEL OF 5.6. RESPONSE WAS "GOOD"
--- NOTE | 2016-11-06 08:24 | NUR ---
BROTHER IN [employer] [facility] CALLED TO CHECK ON PATIENT. UPDATE PROVIDED. HE HAD SAID THE PATIENT'S FATHER HAD CALLED HIM AND MENTIONED THE MESSAGE WE LEFT AND WANTED TO HAVE HIM CHECK ON THINGS. LET HIM KNOW ALL WAS OK, JUST WANTED TO GIVE AN UPDATE. FATHER IS STUCK IN TRAFFIC AT THIS TIME, BUT WILL COME TO SEE PATIENT.
--- NOTE | 2016-11-06 08:51 | NUR ---
PT HAS C/O NAUSEA THIS AM. CHIKISAN AND REGLAN PROVIDED. WILL HOLD SCHEDULED ORAL MEDICATIONS UNTIL NAUSEA SUBSIDES.
--- NOTE | 2016-11-06 09:00 | NUR ---
B-I-L CHARLETTE CALLED BACK. PATIENT FATHER WILL BE COMING TONIGHT, AUNT IS SUPPOSED TO BE HERE FOR DAYTIME VISITS.
--- NOTE | 2016-11-06 09:09 | NUR ---
AUNT AT BEDSIDE FOR 0900 VISITATION. PATIENT ALERT AND CONVERSANT AT THIS TIME.
--- NOTE | 2016-11-06 14:14 | NUR ---
CENTRAL LINE DRESSING TO LEFT SUBCLAVIAN, RIGHT IJ, AND RIGHT RADIAL ART LINE CHANGED PER PROTOCOL. ALL DRESSINGS DATED, TIMED AND INITIALED. DRESSING TO CHEST TUBES AND TEMP PACER CHANGED ORDERED. DATED, TIMED AND INITIALED. LEG DRESSINGS WERE CHANGED THIS AM BY PRIMARY CARE NURSE JASMYNE LOPEZ. DRESSINGS INTACT, NO DRAINAGE NOTED. MILLY BULBS X2 STRIPPED AND REMAIN COMPRESSED.
--- NOTE | 2016-11-06 16:15 | NUR ---
TURNED AND REPOSITIONED FOR COMFORT. PILLOW PLACED BEHIND HEAD. RESTING COMOFORTABLY. DENIES FURTHER NEEDS AT THIS TIME. PA, ART, AND CVP ZEROED. CALL LIGHT PLACED IN REACH. WILL CONT TO ASSESS.
[2016-11-06 18:10] LABS: HEMATOCRIT 26.2 % (42.0-54.0); HEMOGLOBIN 8.6 g/dL (13.5-17.5); MCH 30.4 pg (26.0-34.0); MCHC 32.8 g/dL (31.0-37.0); MCV 92.6 fL (80.0-100.0); MEAN PLATELET VOLUME 10.7 fL (7.4-10.4); RBC 2.83 10x6/uL (4.20-6.10); RDW 13.5 % (11.5-14.5); WBC 10.8 10x3/uL (4.8-10.8)
[2016-11-06 18:20] LABS: ANION GAP 14.1 mmol/L (8-16); CALCIUM 7.7 mg/dL (8.5-10.1); CARBON DIOXIDE 28.3 mmol/L (21.0-32.0); CREATININE - SERUM 2.2 mg/dL (0.6-1.3); POTASSIUM - SERUM 5.4 mmol/L (3.5-5.1)
--- NOTE | 2016-11-06 19:30 | NUR ---
REPORT RECIEVED. ASSESSMENT COMPLETED. SEE FLOW SHEET FOR DETAILS. PT POSITIONED FOR COMFORT. CHEST TUBES NOTED CONNECTED TO SUCTION AT 20 CM, NO LEAKS NOTED AT THIS TIME. PT RESTING WITH EYES CLOSED. WILL CONTINUE 1 ON 1 NURSING CARE.
--- NOTE | 2016-11-06 21:03 | NUR ---
PT FATHER AT BED SIDE. UPDATE GIVEN. PT POSITIONED FOR COMFORT. WILL CONTINUE 1 ON 1 NURSING CARE.
--- NOTE | 2016-11-06 23:00 | NUR ---
REASSESSMENT COMPLETED. NO ACUTE CHANGES AT THIS TIME. WEANING DOPAMINE TOLERATED. PT IS USING IS WITH A EFFORT OF 1250. PT IS POSITIONED FOR COMFORT, WILL CONTINUE 1 ON 1 NURSING CARE.
[2016-11-07] VITALS (28 sets, daily range): BP systolic 94–129; BP diastolic 44–65
--- NOTE | 2016-11-07 01:00 | NUR ---
PT RESTING IN BED HAVE DISCUSSED DISCHARGE TEACHING AND FURTHER USE OF IS. ALSO DISCUSSED THE IMPORTANTANCE OF TURN COUGHING AND DEEP BREATHING. WILL CONTINUE TO EDUCATE AND 1 ON 1 NURSING CARE.
--- NOTE | 2016-11-07 03:00 | NUR ---
REASSESSMENT COMPLETED. NO ACUTE CHANGES AT THIS TIME. PT IS USING THE IS WITH BEST EFFORT OF 750 THIS TIME. WILL CONTINUE 1 ON 1 NURSING CARE.
--- NOTE | 2016-11-07 05:00 | NUR ---
DRESSING CHANGE TO CHEST TUBES AND TPM WIRES PER MD ORDER.
[2016-11-07 06:14] LABS: HEMATOCRIT 22.9 % (42.0-54.0); HEMOGLOBIN 7.6 g/dL (13.5-17.5); MCH 30.5 pg (26.0-34.0); MCHC 33.2 g/dL (31.0-37.0); MEAN PLATELET VOLUME 11.1 fL (7.4-10.4); RBC 2.49 10x6/uL (4.20-6.10); RDW 13.6 % (11.5-14.5); WBC 9.1 10x3/uL (4.8-10.8)
[2016-11-07 06:27] LABS: ALBUMIN 3.4 g/dL (3.4-5.0); ANION GAP 15.9 mmol/L (8-16); BILIRUBIN - TOTAL 0.3 mg/dL (0.2-1.3); CARBON DIOXIDE 24.7 mmol/L (21.0-32.0); CREATININE - SERUM 2.2 mg/dL (0.6-1.3); POTASSIUM - SERUM 5.6 mmol/L (3.5-5.1); PROTEIN - SERUM 6.3 g/dL (6.4-8.2)
--- NOTE | 2016-11-07 07:30 | NUR ---
RECEIVED PT FOR CARE. PT RESTING IN BED WITH EYES CLOSED. ASSESSMENT COMPLETED. VSS AT THIS TIME.
--- NOTE | 2016-11-07 08:00 | NUR ---
DR. DRISCOLL AWARE OF H & H RESULTS. WILL HOLD ON TRANSFUSION AT THIS TIME AND START PT ON P.O. HEMOCYTE
[2016-11-07 08:07] LABS: HEMATOCRIT 22.9 % (42.0-54.0); HEMOGLOBIN 7.6 g/dL (13.5-17.5)
--- NOTE | 2016-11-07 09:00 | NUR ---
DR. DRISCOLL AT BEDSIDE. HE PUSHED 2MG VERSED IV. PT SLEEPING. CT X3 D/C'D BY DR. DRISCOLL. PT TOLERATED WELL. RIGHT IJ SWAN MALIKA D/C'D BY DR. DRISCOLL.
--- NOTE | 2016-11-07 10:00 | NUR ---
RIGHT IJ CORDIS D/C'D PER MD ORDERS. RIGHT RADIAL A-LINE D/C'D PER ORDERS. RIGHT LEG MILLY DRAIN X2 D/C'D. ALL CATH TIPS INTACT. PT TOLERATED WELL. VSS AT THIS TIME.
--- NOTE | 2016-11-07 12:11 | NUR ---
PHYSICAL THERAPY AT BEDSIDE. PT ASSISTED UP TO CHAIR. TOLERATED WELL. SET UP WITH CALL LIGHT WITHIN REACH.
--- NOTE | 2016-11-07 12:30 | NUR ---
PT HAD COMPLETE BATH AND LINEN CHANGE. TOLERATED WELL. NO BREAKDOWN NOTED TO BUTTOCK AREA.
--- NOTE | 2016-11-07 13:00 | NUR ---
MCGOVERN D/C'D PER PROTOCOL. PT TOLERATED WELL. GIVEN URINAL.
--- NOTE | 2016-11-07 14:43 | NUR ---
PT REPORT REC'D, PT CARE ASSUMED. PT AAOX4 SITTING UP IN CHAIR, NO C/O PAIN. TPM VVI 60, SENSING, VSS, 4LNC. PT INSTRUCTED TO USE CALL LIGHT, PT VERBALIZED UNDERSTANDING. WILL CONTINUE TO MONITOR PT.
--- NOTE | 2016-11-07 14:43 | NUR ---
HANDOFF REPORT GIVEN TO LIZ FORD RN AT BEDSIDE.
--- NOTE | 2016-11-07 14:50 | NUR ---
* Is the patient Alert and Oriented? Yes 0 * How many steps to enter\exit or inside your home? 0 0 * PCP Dr. Waddell in [place] 0 * Pharmacy [facility] in [place] or [facility] 0 * Preadmission Environment Home Alone 0 * ADLs Independent 0 * List name and contact numbers for known caregivers / representatives who currently or will assist patient after discharge: Daughter - Tika Doyle [phone] Father - Syed Verduzco [phone] Brother in [facility] - Guillaume [phone] 0 * Additional services required to return to the preadmission environment? Yes 0 * Can the patient safely return to the preadmission environment? Yes 0 * Has this patient been hospitalized within the prior 30 days at any hospital? No Patient Name: SYED VERDUZCO Admission Status: Elective Accout number: [id number] Admission Date: 11-05-2016 : 1960 Admission Diagnosis: Attending: MICHEL DRISCOLL Current LOS: 2 Anticipated DC Date: 11-12-2016 Planned Disposition: Home Primary Insurance: MEDICARE A & B Discharge Planning Comments: CM met with patient to assess dc plans/needs. Patient states he lives alone and is independent with ADL's & IADL's. He denies having any home health or DME services. At dc, he will return home. No needs identified or verbalized at this time. CM will follow & assist as needed. Hand Wood Sander: Angela Stephenson
--- NOTE | 2016-11-07 17:07 | NUR ---
TRANSFERRED PT FROM CHAIR TO BED, PT TOLERATED WELL, WILL CONTINUE TO MONITOR PT.
--- NOTE | 2016-11-07 18:00 | NUR ---
PT FAMILY AT THE BEDSIDE, ALL QUESTIONS ANSWERED, VSS, WILL CONTINUE TO MONITOR PT.
--- NOTE | 2016-11-07 19:30 | NUR ---
REPORT RECIEVED. ASSESSMENT COMPLETED. SEE FLOW SHEET FOR DETAILS. PT IS RESTIN N BED WITH EYES OPEN. DENIES ANY NEEDS. PT POSITIONED FOR COMFORT. CALL LIGHT IN REACH. WILL CONTINUE TO MONITOR.
--- NOTE | 2016-11-07 21:00 | NUR ---
FATHER AT BEDSIDE BROUGHT A FEW CLOTHES. PT STATED " I WANT TO PUT ON SOME UNDERWEAR." HELPED PT USE THE URNAL 500 ML OF URINE. PT HELPED BACK TO BED. POSITIONED FOR COMFORT, WILL CONTINUE TO MONITOR.
--- NOTE | 2016-11-07 23:00 | NUR ---
REASSESSMENT COMPLETED. NO ACUTE CHANGES AT THIS TIME. PT POSITIONED FOR COMFORT WILL CONTINUE TO MONITOR PT.
[2016-11-08] VITALS (23 sets, daily range): BP systolic 91–168; BP diastolic 50–98; Ht 167.6 cm; Wt 100.0 kg
--- NOTE | 2016-11-08 01:00 | NUR ---
RIGHT LEG DRESSING CHANGED. PT SORE BUT HANDLED WELL. POSITIONED FOR COMFORT, WILL CONTINUE TO MONITOR.
--- NOTE | 2016-11-08 03:00 | NUR ---
REASSESSMENT COMPLETED. NO ACUTE CHANGES AT THIS TIME. PT POSITIONED FOR COMFORT WILL CONTINUE TO MONITOR.
--- NOTE | 2016-11-08 05:00 | NUR ---
PT CAME BACK FROM XRAY PLACED IN THE CHAIR. WILL CONTINUE TO MONITOR.
[2016-11-08 06:16] LABS: HEMATOCRIT 22.1 % (42.0-54.0); MCH 30.4 pg (26.0-34.0); MCV 92.1 fL (80.0-100.0); MEAN PLATELET VOLUME 10.7 fL (7.4-10.4); RBC 2.4 10x6/uL (4.20-6.10); RDW 13.5 % (11.5-14.5); WBC 6.9 10x3/uL (4.8-10.8)
[2016-11-08 06:31] LABS: HEMOGLOBIN 7.3 g/dL (13.5-17.5)
[2016-11-08 06:54] LABS: ALBUMIN 3.4 g/dL (3.4-5.0); BILIRUBIN - TOTAL 0.4 mg/dL (0.2-1.3); CALCIUM 8.4 mg/dL (8.5-10.1); CARBON DIOXIDE 27.4 mmol/L (21.0-32.0); CREATININE - SERUM 2.1 mg/dL (0.6-1.3); PROTEIN - SERUM 6.6 g/dL (6.4-8.2)
[2016-11-08 06:55] LABS: ANION GAP 12.1 mmol/L (8-16); POTASSIUM - SERUM 4.5 mmol/L (3.5-5.1)
--- NOTE | 2016-11-08 07:50 | NUR ---
UP IN CHAIR BESIDE BED AWAKE AT THIS TIME AND BRUSHING TEETH. DENIES ANY NEEDS. NO ACUTE DISTRESS NOTED. WILL CONTINUE PLAN OF CARE.
--- NOTE | 2016-11-08 09:50 | NUR ---
UP IN CHAIR BESIDE BED AT THIS TIME. NOTED PT WALKED WITH PHYSICAL THERAPY A TOTAL OF 90 FEET. PT DENIES ANY NEEDS. NO ACUTE DISTRESS NOTED. WILL CONTINUE PLAN OF CARE.
--- NOTE | 2016-11-08 12:48 | NUR ---
UP IN CHAIR RESTING AT THIS TIME. RESPIRATIONS AT STEADY AND UNLABORED RATE. PT AWAKENS EASILY WHEN SPOKEN TO. NO ACUTE DISTRESS NOTED. WILL CONTINUE PLAN OF CARE.
--- NOTE | 2016-11-08 13:07 | NUR ---
PT SWITCHED BACK TO VENT (FIO2 AT 40%) FROM TRACH COLLAR AT THIS TIME. NO ACUTE DISTRESS NOTED. WILL CONTINUE PLAN OF CARE.
--- NOTE | 2016-11-08 14:00 | NUR ---
WALKING WITH PHYSICAL THERAPY AT THIS TIME. NO ACUTE DISTRESS NOTED. PT DENIES ANY NEEDS. NO SHORTNESS OF BREATH. WILL CONTINUE PLAN OF CARE.
--- NOTE | 2016-11-08 14:05 | NUR ---
UP IN BED AWAKE AT THIS TIME DENIES ANY NEEDS. NO ACUTE DISTRESS NOTED. NOTED TO HAVE PRODUCTIVE COUGH AT TIMES, CLEAR THICK. PT DENIES ANY NEEDS. WILL CONTINUE PLAN OF CARE.
--- NOTE | 2016-11-08 17:44 | NUR ---
RESTING IN BED AT THIS TIME. RESPIRATIONS STEADY AND UNLABORED. NO ACUTE DISTRESS NOTED. AWAKENS EASILY WHEN SPOKEN TO. WILL CONTINUE PLAN OF CARE.
--- NOTE | 2016-11-08 18:22 | NUR ---
FAMILY AT BEDSIDE. UPDATE GIVEN. NO ACUTE DISTRESS NOTED. PT ASSISTED TO TOILET, CONTINENT VOID NOTED, APPROX 800ML YELLOW URINE. WILL CONTINUE PLAN OF CARE.
--- NOTE | 2016-11-08 18:44 | NUR ---
ORAL CARE PERFORMED WITH PERIDEX ORDERED
--- NOTE | 2016-11-08 20:00 | NUR ---
2000: Pt rec'd resting HOB 30 degrees with eyes closed. Open to verbal and Pupils ANAND+ bilat. SMCx4=bilat laundry or dry cleaners counter clerk. Pt follows all commands and able to mvoe x4 extrem vs gravity without difficulty. Pt breathing 022LNC with RR20x with SPO2 94-95%. Lungs decreased bilat bases with auscultation. MMP and no cyanosis noted. Encouraged DBC. Pt with strong productive cough. IS done with max TV 1000cc achieved. S1S2 regular SR 80-90bpm at this time. Left DLSC CDI and SL'D. Midline sternal incision CDI with no s/s of bleeding, oozing, or swelling noted. Distal portion of dressing with TPM wires taped intact. TPM VVI 60/0/10 showing V-Sense. Right leg with multiple dressings extending distally to calf. ABD soft NT BS active x4. Pt denies difficulty with elimination. SR upx2, call light in reach, all alarms on and intact. Bed alarm audible.
--- NOTE | 2016-11-08 21:00 | NUR ---
2100: Pt assisted up to bathroom at this time. Pt gait unsteady and appears to have trouble with balance. Moderate assistance was provided. Pt unable to void at this time and returned to chair. Pt bed changed R/T malfx'ing controls. Pt assisted back to bed and all monitors and alarms replaced. Bed alarm on and audible.
--- NOTE | 2016-11-08 21:15 | NUR ---
2115: Pt c/o nausea at this time and Zofran IVP admin. Cool cloth to forehead and emesis bag given to patient for use. Wall sx intact and fx'ing PRN.
--- NOTE | 2016-11-08 22:00 | NUR ---
2200: Pt assisted up to bathroom at this time. Pt gait unchanged and required moderate assistance. Pt urinated approx 200cc. Urine collection hat in toilet, but patient not able to urinate completely in hat. Pt assisted back to bed and all monitors reestablished.
--- NOTE | 2016-11-08 22:30 | NUR ---
2230: Pt assisted back up to bathroom at this time. Pt states he feels need to urinate. Pt unable to urinate at this time. Pt assisted back to bed and partial linen change done. Pt provided warm blankets, ice, and water per request.
[2016-11-09] VITALS (35 sets, daily range): BP systolic 87–129; BP diastolic 49–96
--- NOTE | 2016-11-09 00:15 | NUR ---
0015: Pt up to bathroom and had x1 semi solid BM. Pt also urinated in toilet, but unable to accurately measure. Pt returned to bed. Warm blanket, [place], and Ice provided per request. Call light, cell phone, and emesis bag with in reach. Pt remains ST 100's on CM with SBP 100's. TPM unchanged VVI 60/0/10 showing V-Sensing. No chagne in dressings or IVs at this time.
--- NOTE | 2016-11-09 00:45 | NUR ---
0045: Pt HR alarm sounding. Pt is in Afib with rate of 155-160 bpm and SBP 100's at this time. Pt states he has not SOB, CP, or other changes at this time. Pt apical pulse is irregular. RT called and ABG+EKG completed.
--- NOTE | 2016-11-09 01:00 | NUR ---
0100: Dr. Pride called and new orders rec'd and noted. Amiodarone 150mg IV bolus admin via CVL at this time. PRBC ordered.
--- NOTE | 2016-11-09 01:05 | NUR ---
0105: Lab called and stated that "Type and cross are out of date and can't release blood." Blood draw done and new T+C done STAT.
--- NOTE | 2016-11-09 01:30 | NUR ---
0130: Pt remains in Afib 125-135 bpm with SBP 100's. 2nd Amiodarone bolus admin at this time via CVL. Pt without c/o at this time.
--- NOTE | 2016-11-09 01:40 | NUR ---
0140: Pt requesting to get OOB to urinate. Provided and assisted with urinal at this time. Pt unable to urinate and states "Oops I went to the bathroom." Pt with small semi solid BM at this time. Pt bath done and linen changed at this time. Pt proximal leg dressing with oozing noted. Changed dressing at this time. [place] intact, no redness or swelling noted.
--- NOTE | 2016-11-09 01:50 | NUR ---
0150: Amiodarone gtt 600mg/100cc D5W started at 1 mg/min (10cc/hr) to infuse over 6 hours as per orders.
--- NOTE | 2016-11-09 02:00 | NUR ---
0200: PRBC started with NS and blood tubing via CVL with PAL Filter attached.
--- NOTE | 2016-11-09 03:30 | NUR ---
0330: Pt converted to SR 85-90 bpm at this time with SBP 90's. Pt remains with Amiodarone gtt 1 mg/min.
--- NOTE | 2016-11-09 04:00 | NUR ---
0400: Pt remains SR 80-90 bpm with SBP 90-100. Pt requesting to get OOB for BM and urination. Pt assisted up to bathroom. Pt standing weight completed and pt transferred to and then radiology for PA/LAT. Pt returned to room and assisted again to bathroom. Pt continues with frequent small liquid BM. Pt returned to bed and all monitors and alarms reestablished. Pt remains SR 90 with SBP 100's. 2nd unit of PRBC started via CVL with NS and blood tubing and Pall filter. Amiodarone remains at 1 mg/min at this time.
--- NOTE | 2016-11-09 04:30 | NUR ---
0430: Provided water etc.. for patient as per request.
[2016-11-09 06:25] LABS: MCH 29.7 pg (26.0-34.0); MCHC 32.8 g/dL (31.0-37.0); MCV 90.5 fL (80.0-100.0); MEAN PLATELET VOLUME 10.7 fL (7.4-10.4); RDW 14.3 % (11.5-14.5); WBC 6.9 10x3/uL (4.8-10.8)
[2016-11-09 06:28] LABS: HEMATOCRIT 26.8 % (42.0-54.0); HEMOGLOBIN 8.8 g/dL (13.5-17.5); RBC 2.96 10x6/uL (4.20-6.10)
--- NOTE | 2016-11-09 06:30 | NUR ---
0630: Pt requested to go to bathroom. Assisted patient with urinal. Pt unable to urinate at this time. Pt remains SR 80's with SBP 100. Pt 022LNC RR18x with SPO2 97%. No change in TPM settings VVI 60/0/10 V-Sense. Pt remains Amiodarone 1 mg/min at this time. VTBI infused set to alarm for reduction to 1/2 mg/min as per orders.
[2016-11-09 06:43] LABS: ALBUMIN 3.1 g/dL (3.4-5.0); ANION GAP 10.6 mmol/L (8-16); BILIRUBIN - TOTAL 0.6 mg/dL (0.2-1.3); CALCIUM 8.1 mg/dL (8.5-10.1); CREATININE - SERUM 1.6 mg/dL (0.6-1.3); POTASSIUM - SERUM 4.6 mmol/L (3.5-5.1); PROTEIN - SERUM 6.4 g/dL (6.4-8.2)
--- NOTE | 2016-11-09 07:46 | NUR ---
UP IN BED AWAKE AT THIS TIME. NO ACUTE DISTRESS NOTED. PT ALERT AND ORIENTED. NOTED DURING ASSESSMENT DRESSINGS CDI. ALSO NOTED PETECHIAE TO LEFT GROIN WHICH WAS NOT NOTED BEFOREHAND. WILL NOTIFY PHYSICIAN. WILL CONTINUE PLAN OF CARE.
--- NOTE | 2016-11-09 09:21 | NUR ---
UP IN CHAIR BESIDE BED VISITING WITH VISITOR. NO ACUTE DISTRESS NOTED. IN SINUS RHYTHM. WILL CONTINUE PLAN OF CARE.
--- NOTE | 2016-11-09 11:55 | OP ---
PATIENT NAME: SYED MONK MEDICAL RECORD: [id number] :64 LOCATION:[facility] ADMISSION DATE:11/05/16 SURGEON: EBEN DRISCOLL MD DATE OF OPERATION: 11/05/2016 SURGEON: Eben Driscoll MD. ANESTHESIA: General endotracheal, Dr. Li. OPERATIONS PERFORMED: Aortocoronary artery bypass utilizing left internal thoracic, left anterior descending, reverse saphenous vein segment to the first obtuse marginal and reverse saphenous vein segment posterior descending coronary artery. PREOPERATIVE DIAGNOSES: 1. Ischemic cardiomyopathy. 2. Angina pectoris. 3. 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 POSTOPERATIVE DIAGNOSES: 1. Ischemic cardiomyopathy. 2. Angina pectoris. 3. 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 INDICATION FOR OPERATION: Congestive heart failure, angina. FINDINGS OF THE OPERATION: The left anterior descending and posterior descending coronary arteries were good caliber vessels. They were diffusely diseased. The first diagonal was moderately diseased and a good caliber vessel. The greater saphenous vein and left internal thoracic were of excellent caliber. ESTIMATED BLOOD LOSS: Cell Saver was used. DESCRIPTION OF PROCEDURE: After informed consent, adequate preoperative medication evaluation, the patient was brought to the operating room, placed on the table in the supine position. After induction of general endotracheal anesthesia and application of appropriate monitoring devices and transesophageal echo, the patient was prepped and draped in a sterile field, utilizing Betadine scrub, alcohol, and Betadine solution. A Betadine-impregnated drape was also used. Saphenous vein was harvested from right thigh and upper leg and prepared for reverse saphenous vein grafting. The leg was closed over drains utilizing 3-0 Vicryl and skin gumaro. A median sternotomy incision was made and dissection carried down the fascia. Hemostasis maintained with electrocautery. Sternum was divided. Innominate was identified and protected. Left internal thoracic was taken down and prepared for grafting. The patient was given a calculated dose of heparin, cannulated in the standard fashion utilizing 1 aortic, one two-stage cannula in the atrium and inferior vena cava. The patient was placed on cardiopulmonary bypass, cooled to 32 degrees centigrade. A cross clamp was placed just proximal to the aortic cannula. The patient was given cardioplegic solution through the aortic root. The patient was given a cold induction and cold maintenance. The patient was given cold intermittent cardioplegic solution throughout the procedure through the graft, through the OPERATIVE REPORT [id number] LACHO,SYED COREY olivier or a combination of both. The first vessel to be grafted was the posterior descending. It was grafted end-to-side utilizing a running 7-0 Prolene suture. Graft was measured back to the aorta and a proximal anastomosis fashioned utilizing running 6-0 Prolene suture. Next, the first diagonal was grafted end-to-side utilizing a running 7-0 Prolene suture. Grafts were measured back to the aorta and a proximal anastomosis fashioned utilizing running 6-0 Prolene suture. Next, left internal thoracic was brought through the hole in pericardium, sutured left anterior descending end-to-side utilizing a running 8-0 Prolene suture. Pedicle was attached to epicardium with 7-0 Prolene suture. All maneuvers to remove trapped air were performed. The patient was given warm cardioplegic reperfusion and controlled reperfusion. The patient rewarmed to 37 degrees centigrade. Two atrial and 2 ventricular pacing wires were placed on the heart and brought out through the epigastric area. The patient was weaned cardiopulmonary bypass. After being stable off bypass, he was given calculated dose of protamine to reverse the heparin. Hemostasis was achieved. A #40 right angle and #36 chest tubes were brought in through the epigastric area and placed in the mediastinum. The chest was again irrigated. Instrument count and sponge count were correct times 2. A separate left pleural tube was connected underwater seal and suction. Chest was closed in layers utilizing #7 wire on the sternum, #2 Vicryl on the linea alba and pectoralis fascia, subcutaneous tissues approximated with 3-0 Vicryl and skin approximated with 3-0 subcuticular Vicryl. Sterile dressings were applied. The patient tolerated the procedure well and transferred to [facility] ICU in satisfactory condition. TRANSINT:[id number] Voice Confirmation ID: [id number] DOCUMENT ID: [id number] EBEN DRISCOLL MD at 1155 CC: [id number] DICTATION DATE: 11/05/16 1446 CREDIT CARD ANALYST: 11/05/16 1549 ADM IN [place] [id number] [place] [address]
--- NOTE | 2016-11-09 12:01 | NUR ---
UP IN CHAIR IN ROOM AT THIS TIME. NO ACUTE DISTRESS NOTED. DENIES ANY NEEDS. WILL CONTINUE PLAN OF CARE.
--- NOTE | 2016-11-09 15:30 | NUR ---
UP IN BED WATCHING TV AND VISITING WITH VISITORS. DENIES ANY NEEDS. WILL CONTINUE PLAN OF CARE.
--- NOTE | 2016-11-09 17:09 | NUR ---
UP IN BED WATCHING TV AT THIS TIME. DENIES ANY NEEDS. NO ACUTE DISTRESS NOTED. WILL CONTINUE PLAN OF CARE.
--- NOTE | 2016-11-09 19:07 | NUR ---
ORAL CARE PERFORMED WITH PERIDEX ORDERED
--- NOTE | 2016-11-09 21:00 | NUR ---
2100: Pt assisted up to bathroom at this time. Pt gait steady with minimal assistance. Pt returned to bed and all alarms reattached. Pt remains 022LNC with RR20x with SPO2 95%. Encouraged DBC. Pt with strong productive cough. Small amount of clear sputum expectorated. Pt remains SR 80's on CM. TPM unchanged VVI 60/0/10 v-Sense. All alarms on including bed alarm which is audible. Call light in reach.
--- NOTE | 2016-11-09 21:30 | NUR ---
2130: Pt request to brush teeth. Provided toothbrush and assisted patient with oral care.
[2016-11-10] VITALS (24 sets, daily range): BP systolic 98–121; BP diastolic 41–72
--- NOTE | 2016-11-10 | NUR ---
0000: Pt assisted up to bathroom with minimal assistance. Pt gait steady at this time. Pt with x1 liquid BM and "peed some." Pt remains SR 80's on CM with SBP 110's. No change in TPM settings and remains V-Pacing. Pt SPO2 >92%. 02 remains off at this time.
--- NOTE | 2016-11-10 00:50 | NUR ---
0050: Assisted pt back to bathroom. Pt with x1 small liquid BM. Assisted pt up, but pt felt urge to deficate again. Pt returned to commode. Pt with additional small liquid BM. Pt assisted back to bed and returned to all montiors. Pt SPO2 decreased <92%. Pt placed back on 022LNC.
--- NOTE | 2016-11-10 03:30 | NUR ---
0330: Pt assisted up OOB to bathroom at this time. Pt with small liquid BM. Pt returned to for AM PA/LAT. Pt to radiology for exam and returned without difficulty.
--- NOTE | 2016-11-10 04:00 | NUR ---
0400: Pt c/o nausea at this time. Provided emesis bag and Zofran admin as per EMAR. Pt resting on RA at this time with SPO2 94%. Encouraged DBC. Pt remains SR 80's on CM with SBP 100's.
--- NOTE | 2016-11-10 04:50 | NUR ---
0450: Pt resting on left side with eyes closed at this time. Pt remains SR 80's on CM TPM VVI 60/0/10 V-Sense. DLSC remains SL'D. Pt RA RR16x with SPO2 92% at this time.
[2016-11-10 06:07] LABS: HEMATOCRIT 27.4 % (42.0-54.0); HEMOGLOBIN 8.9 g/dL (13.5-17.5); MCH 29.7 pg (26.0-34.0); MCHC 32.5 g/dL (31.0-37.0); MCV 91.3 fL (80.0-100.0); MEAN PLATELET VOLUME 10.7 fL (7.4-10.4); RDW 14.6 % (11.5-14.5); WBC 5.5 10x3/uL (4.8-10.8)
[2016-11-10 06:18] LABS: ANION GAP 11.6 mmol/L (8-16); BILIRUBIN - TOTAL 0.56 mg/dL (0.2-1.3); CARBON DIOXIDE 26.7 mmol/L (21.0-32.0); CREATININE - SERUM 1.5 mg/dL (0.6-1.3); POTASSIUM - SERUM 4.3 mmol/L (3.5-5.1); PROTEIN - SERUM 6.6 g/dL (6.4-8.2)
--- NOTE | 2016-11-10 07:27 | NUR ---
UP IN BED, HIGH FOWLERS POSITION RESTING AT THIS TIME, RESPIRATIONS STEADY AND UNLABORED RATE. AWAKENS EASILY WHEN SPOKEN TO. NO ACUTE DISTRESS NOTED. WILL CONTINUE PLAN OF CARE.
--- NOTE | 2016-11-10 09:12 | NUR ---
WALKED 250 FEET WITH PHYSICAL THERAPY. PT UP IN CHAIR BESIDE BED AT THIS TIME. NO ACUTE DISTRESS NOTED. WILL CONTINUE PLAN OF CARE.
--- NOTE | 2016-11-10 10:11 | NUR ---
ASSISTED TO TOILET, CONTINENT VOID NOTED. PT UP IN CHAIR BESIDE BED WATCHING TV. DENIES ANY NEEDS. NO ACUTE DISTRESS NOTED. WILL CONTINUE PLAN OF CARE.
--- NOTE | 2016-11-10 12:40 | NUR ---
UP IN CHAIR BESIDE BED EATING LUNCH AND VISITING WITH FAMILY. DENIES ANY NEEDS. NO ACUTE DISTRESS NOTED. SINUS RHYTHM. WILL CONTINUE PLAN OF CARE.
--- NOTE | 2016-11-10 16:14 | NUR ---
NOTED PT TO HAVE SHORT RHYTHM OF SINUS THEN AFIB THEN BACK TO SINUS. BLOOD PRESSURE 100/60. LABS FOR POTASSIUM DRAW OBTAINED. DR DRISCOLL NOTIFIED, ORDER NOTED FOR 400MG CORDARONE X 1 NOW TO BE GIVEN PO. ORDER PLACED. WILL CONTINUE PLAN OF CARE.
--- NOTE | 2016-11-10 17:27 | NUR ---
POTASSIUM REDDRAW NOTED AT 4.0. PROTOCOL IS FOR REPLACEMENT OF 5MEQ POTASSIUM FOR THIS LEVEL. REPLACING POTASSIUM PER ORDERS. WILL CONTINUE PLAN OF CARE.
--- NOTE | 2016-11-10 18:25 | NUR ---
PT NOTED TO BE IN ATRIAL FIB RATE OF 114. DR DRISCOLL NOTIFIED. NO NEW ORDERS. WILL CONTINUE PLAN OF CARE.
--- NOTE | 2016-11-10 18:44 | NUR ---
PT HAS CONVERTED BACK TO SINUS RHYTM AT 85. DR DRISCOLL NOTIFIED.
--- NOTE | 2016-11-10 19:30 | NUR ---
REPORT RECIEVED. ASSESSMENT COMPLETED. SEE FLOW SHEET FOR DETAILS. PT TPM IS SENSING WITH A RATE OF 60 AND VMA OF 10. PT HAS A LT SUBCLAVIAN SALINE LOCKED. PT IS ASSESSED TO THE RESTROOM WITH A UNSTEADY GATE. PT POSITIONED FOR COMFORT, WILL CONTINUE TO MONITOR.
--- NOTE | 2016-11-10 21:00 | NUR ---
NO VISITIORS AT THIS TIME. PT ASKED FOR HELP TO TURN HIS TV ON ASSISTED. POSITIONED FOR COMFORT WILL CONTINUE TO MONITOR.
--- NOTE | 2016-11-10 23:00 | NUR ---
REASSESSMENT COMPLETED. NO ACUTE CHANGES AT THIS TIME. PT POSITIONED FOR COMFORT. CALL LIGHT IN REACH, WILL CONTINUE TO MONITOR.
[2016-11-11] VITALS (12 sets, daily range): BP systolic 93–112; BP diastolic 54–75
--- NOTE | 2016-11-11 01:00 | NUR ---
PT SLEEPING WITH EYES CLOSED, WILL CONTINUE TO MONITOR.
--- NOTE | 2016-11-11 03:00 | NUR ---
REASSESSMENT COMPLETED. NO CHNAGES. VSS. AWAITING FOR XRAY TO COME TO GET HIM. WILL CONTINUE TO MONITOR.
--- NOTE | 2016-11-11 04:16 | NUR ---
PT BACK FROM XRAY PLACED IN CHAIR. REQUESTED A POPCYCLE.
--- NOTE | 2016-11-11 05:00 | NUR ---
PT IN CHAIR WATCHING TV. VSS. WILL CONTINUE TO MONITOR.
[2016-11-11 08:26] LABS: HEMATOCRIT 29.3 % (42.0-54.0); HEMOGLOBIN 9.4 g/dL (13.5-17.5); MCH 29.8 pg (26.0-34.0); MCHC 32.1 g/dL (31.0-37.0); MEAN PLATELET VOLUME 10.7 fL (7.4-10.4); RBC 3.15 10x6/uL (4.20-6.10); RDW 14.5 % (11.5-14.5)
[2016-11-11 08:49] LABS: ANION GAP 10.6 mmol/L (8-16); BILIRUBIN - TOTAL 0.88 mg/dL (0.2-1.3); CALCIUM 8.5 mg/dL (8.5-10.1); CARBON DIOXIDE 27.7 mmol/L (21.0-32.0); CREATININE - SERUM 1.5 mg/dL (0.6-1.3); POTASSIUM - SERUM 4.3 mmol/L (3.5-5.1); PROTEIN - SERUM 6.8 g/dL (6.4-8.2)
--- NOTE | 2016-11-11 09:06 | NUR ---
PT AMBULATED 500FT WITH PHYSICAL THERAPY. NO ASSISTANCE NEEDED. VSS AT THIS TIME. NO S/S OF DISTRESS NOTED.
--- NOTE | 2016-11-11 10:12 | NUR ---
Nutrition Follow Up: Pt reported that his appetite is decreased. He said that he feels nauseated while eating so he does not eat very much. Pt stated that he has never been a "big eater." Pt agreed to Glucerna with meals. He requested chicken noodle soup with lunch meal today. Pt is eating 52% meal avg on an ADA/AHA diet. Wt stable. +BM 11/10/16. Meds and labs reviewed. Rec continue current diet. Will send Glucerna TID and honor food preferences within diet ordered. RD following.
--- NOTE | 2016-11-11 10:56 | NUR ---
PT AMBULATED TO RESTROOM BY SELF. VOIDED WITHOUT DIFFICULTY. REPORTS THAT HE HAD A BM AND URINATED. AMBULATED BACK TO CHAIR. CALL LIGHT WITHIN REACH. VSS.
--- NOTE | 2016-11-11 13:00 | NUR ---
PT SITTING UP IN CHAIR. TOLERATED LUNCH. NO OTHER NEEDS AT THIS TIME.
--- NOTE | 2016-11-11 14:11 | NUR ---
VIKI BURRIS RN AT BEDSIDE AND D/C'D TPM WIRES.
--- NOTE | 2016-11-11 15:15 | NUR ---
PT HANDED OFF TO ADOLFO STEWART RN.
[2016-11-11] MEDS ORDERED: HEMOCYTE PLUS C1 CAP PO (15:31)
[2016-11-11] MEDS ORDERED: LOPRESSOR25 MG PO (15:32)
[2016-11-11] MEDS ORDERED: CORDARONE200 MG PO (15:32)
[2016-11-11] MEDS ORDERED: ASPIRIN81 MG PO (15:33)
[2016-11-11] MEDS ORDERED: HYDROCODONE-APA1 TAB PO (15:37)
--- NOTE | 2016-11-11 16:08 | NUR ---
1600 CVL LEFT SUBCLAVIAN DCd AT THIS TIME DRESSING APPLIED..
--- NOTE | 2016-11-11 18:14 | NUR ---
PT TAKEN BY WHEELCHAIR TO VEHICLE. ALL DISCHARGE PAPERWORK IN HAND. NO S/S OF DISTRESS NOTED. PT REPORTS THAT HE HAS ALL BELONGINGS.
--- NOTE | 2016-11-14 12:22 | TEE ---
PATIENT:SYED MONK MEDICAL RECORD: [id number] LOCATION:[place] [address] AGE OF PATIENT: 56 ADMISSION DATE: 11/05/16 SEX: M REFERRING PHYSICIAN: INTERPRETING PHYSICIAN: JOE LUGO MD TRANSESOPHAGEAL ECHOCARDIOGRAM ISHAN CHARGE Y INDICATIONS: CABG PREMEDICATIONS: PATIENT'S RESPONSE PROCEDURE DOPPLER MEASUREMENTS: LVIT LA PA RA LVOT RVOT Asc. Ao AV Gradient Peak AV Mean AV Area MV Gradient Peak MV Mean MV Area INTERPRETATION: Doppler: 2-D: EF 55 % + COLOR FLOW DOPPLER TRACE / MILD MITRAL REGURG NORMAL SALINE STUDY: MISCELLANOUS: DIAGNOSIS: PLAN: Awnings Mechanic:1 Dr. Lugo Bellows Assembler: Shay GRULLON COMMENTS: AMER[place] PATIENT DATE OF SERVICE: 11/05/2016 Transesophageal echo evaluation of valvular structures during bypass surgery. FINDINGS: 1. Left ventricle chamber size is within normal limits. Left ventricular systolic function is normal. Overall ejection fraction estimated at 55%. 2. Left atrium, right atrium, and right ventricular chamber sizes are within normal limits. TRANSESOPHAGEAL ECHOCARDIOGRAM REPORT [id number] SYED MONK 3. Valvular structures have normal structure and motion. 4. Doppler interrogation only reveals trace mitral regurgitation. No other valvular insufficiency or stenosis. 5. No evidence of pericardial effusion or left ventricular thrombus. TRANSINT:[id number] Voice Confirmation ID: [id number] DOCUMENT ID: [id number] at 1222 CC: [id number] DICTATION DATE: 11/06/16 1055 FISHER DIVING: 11/06/16 1135 DIS IN 11/11/16 [place] [address]
--- NOTE | 2016-11-15 11:04 | NUR ---
NOTE MADE ON 11/08 AT 13:07 WAS CHARTED ON THE WRONG PT. THIS NOTE WAS NOT INTENDED FOR THIS PT.
== END 2016-11-11 18:17 | disposition home or self-care (01) | DRG 235 ==
LOC: D.SDCHOLD 05:04 → D.CVICU 05:04 → D.SDCHOLD 07:30 → D.CVICU 13:25
PROVIDERS: ADMIT Internal Medicine Cardiovascular Disease
PROC: 021109W Bypass Coronary Artery, Two Arteries from Aorta with Autologous Venous Tissue, Open Approach (ICD-10-PCS; 2016-11-05)
PROC: 06BP0ZZ Excision of Right Saphenous Vein, Open Approach (ICD-10-PCS; 2016-11-05)
PROC: 5A1221Z Performance of Cardiac Output, Continuous (ICD-10-PCS; 2016-11-05)
PROC: B245ZZ4 Ultrasonography of Left Heart, Transesophageal (ICD-10-PCS; 2016-11-05)
PROC: 02100AC Bypass Coronary Artery, One Artery from Thoracic Artery with Autologous Arterial Tissue, Open Approach (ICD-10-PCS; principal; 2016-11-05 07:30)
DX: I25.119 Atherosclerotic heart disease of native coronary artery with unspecified angina pectoris (principal); N17.0 Acute kidney failure with tubular necrosis; I13.0 Hypertensive heart and chronic kidney disease with heart failure and stage 1 through stage 4 chronic kidney disease, or unspecified chronic kidney disease; N18.4 Chronic kidney disease, stage 4 (severe); K21.9 Gastro-esophageal reflux disease without esophagitis; I25.82 Chronic total occlusion of coronary artery; I25.5 Ischemic cardiomyopathy; E11.22 Type 2 diabetes mellitus with diabetic chronic kidney disease; I50.9 Heart failure, unspecified; Z79.4 Long term (current) use of insulin; E78.5 Hyperlipidemia, unspecified; E11.40 Type 2 diabetes mellitus with diabetic neuropathy, unspecified; I48.0 Paroxysmal atrial fibrillation

== ENCOUNTER → 2016-11-28 09:55 | Outpatient (CLI) | payer MEDICARE ==
[2016-11-08 09:38] VITALS: BMI 35.8
[~2016-11-28 09:55] MED LIST changes: +ASPIRIN81 MG PO; +CORDARONE200 MG PO; +HEMOCYTE PLUS C1 CAP PO; +HYDROCODONE-APA1 TAB PO; +LOPRESSOR25 MG PO
[2016-11-28 10:33] LABS: HEMATOCRIT 40.5 % (42.0-54.0); HEMOGLOBIN 12.5 g/dL (13.5-17.5); MCH 29.4 pg (26.0-34.0); MCHC 30.9 g/dL (31.0-37.0); MCV 95.3 fL (80.0-100.0); MEAN PLATELET VOLUME 10.2 fL (7.4-10.4); RBC 4.25 10x6/uL (4.20-6.10); RDW 15.5 % (11.5-14.5); WBC 4.4 10x3/uL (4.8-10.8)
[2016-11-28 10:46] LABS: ANION GAP 13.6 mmol/L (8-16); CALCIUM 9.7 mg/dL (8.5-10.1); CREATININE - SERUM 1.5 mg/dL (0.6-1.3); POTASSIUM - SERUM 4.6 mmol/L (3.5-5.1)
== END | disposition home or self-care (01) ==
LOC: D.RAD 08:15
PROVIDERS: Internal Medicine Cardiovascular Disease
DX: D64.9 Anemia, unspecified (principal); J90 Pleural effusion, not elsewhere classified; Z95.1 Presence of aortocoronary bypass graft